=== PATIENT | female | born 1970 | race Caucasian/White ===

== ENCOUNTER 2024-03-28 12:05 | Emergency (ER) | payer SELFPAY ==
[2024-03-28 12:12] VITALS: BP 117/70; PULSE 102; RESP 20; TEMP 36.6; O2SAT 99
--- NOTE | 2024-03-28 12:58 | ED.URI ---
HPI - URI/Sore Throat General Chief Complaint: Upper Respiratory Infection Stated Complaint: headcold/cough/sinus pressure/ear Time Seen by Provider: 03/28/24 12:30 Source: patient, RN notes reviewed and old records reviewed Mode of arrival: ambulatory Limitations: no limitations History of Present Illness HPI Narrative: 53 year old female who presents to [facility] care with complaints of head cold, cough, sinus pressure, and right ear pain for about a week. Patient reports that she just traveled from [place] last Saturday where she just got .Patient has MS and also Myasthenia gravis and takes infusions for treatment of these disease processes. Patient reports that she has been taking Ibuprofen for her symptoms and did do home COVID tests which have been negative MD elicited complaint: cough, rhinorrhea, nasal congestion, sinus pain and other (EAR PAIN) Pertinent past history: immunosuppression and other (recent travel) Onset (ago): week(s) (1) Pain scale (0-10): 7 Able to tolerate fluids by mouth: Yes Treatments prior to arrival: ibuprofen Related Data Home Medications Medication Instructions Recorded Confirmed atorvastatin 20 mg tablet 20 mg PO DAILY 03/28/24 03/28/24 bupropion HCl 150 mg tablet,12 hr 300 mg PO DAILY 03/28/24 03/28/24 sustained-release dapagliflozin propanediol 10 mg 10 mg PO DAILY 03/28/24 03/28/24 tablet (Farxiga) escitalopram oxalate 10 mg tablet 10 mg PO DAILY 03/28/24 03/28/24 insulin glargine 100 unit/mL 60 unit subcut DAILY 03/28/24 03/28/24 subcutaneous solution (Lantus U-100 Insulin) irbesartan 75 mg tablet 75 mg PO DAILY 03/28/24 03/28/24 metformin 1,000 mg tablet 1,000 mg PO DAILY 03/28/24 03/28/24 spironolactone 50 mg tablet 50 mg PO BID 03/28/24 03/28/24 Allergies Allergy/AdvReac Type Severity Reaction Status Date / Time No Known Allergies Allergy Verified 03/28/24 12:17 Review of Systems Review of Systems: CONSTITUTIONAL: Reports malaise, no chills, sweats, or fever. EYES: Denies visual changes, redness, or discharge. ENT: Reports rhinorrhea, congestion, sinus pain, right otalgia and no sore throat. CARDIOVASCULAR: Denies chest pain, palpitations, or edema. RESPIRATORY: Reports dry cough.? Denies dyspnea. GASTROINTESTINAL: Denies abdominal pain, nausea, vomiting, diarrhea SKIN: Denies rash or itching. MUSCULOSKELETAL: Denies myalgia. NEUROLOGIC: Reports headache. All systems reviewed & are unremarkable except as noted in HPI and below PMFSH Past Medical History Medical History (Updated 03/30/24 @ 11:08 by Carleen See NP) Anxiety and depression Diabetes Hyperlipidemia Hypertension Multiple sclerosis Myasthenia gravis without (acute) exacerbation Surgical History Surgical History (Updated 03/28/24 @ 13:34 by Carleen See NP) H/O: hysterectomy History of thymectomy Social History Social History (Updated 03/28/24 @ 13:27 by Carleen See NP) Smoking status: Former smoker Tobacco type: cigarettes Alcohol intake: current Alcohol use details: social Substance use type: does not use Living arrangements: with family Gender identity (if verbalized by the patient): Female Comments At time of signature, agree with nursing past medical, surgical, social and family history. There is no relevant family history pertinent to the presenting complaint Exam Narrative: GENERAL: Well-appearing, well-nourished, and in no acute distress. HEAD: Normocephalic EYES: PERRLA, conjunctivae clear ENT: Nares clear, turbinates edematous and erythematous, clear discharge sinus pressure and some headache pain, Mucous membranes moist.RIGHT TM RED, Left TM pearly oconnor with dull light reflex; no tragal tenderness. Oropharynx erythematous without lesions. Tonsils not present and throat without exudate, no drooling, no hoarseness, no trismus, uvula midline.post nasal drainage NECK: Supple. No lymphadenopathy CHEST: Clear to auscultation, breath sounds equal. No wheezing, rhonchi, rales, or stridor. No respiratory distress, speaks in full sentences.COUGH SAO2 99% ON ROOM AIR HEART: Regular rate and rhythm. No murmur heard. SKIN: Warm, dry, no rash. NEURO: Alert and oriented x3. PSYCH: Normal mood and affect Course Course Emergency Course: Patient is aware of diagnosis, understands and agrees to treatment plan.? Anticipatory guidance given.? Patient agrees to follow-up as directed and is aware of reasons to seek care at the emergency department. Portions of this record may have been created with voice recognition software Level of Care: Express Care Visit Vital Signs Vital signs: Vital Signs Temperature 36.6 C 03/28/24 12:12 Pulse Rate 102 H 03/28/24 12:12 Respiratory Rate 20 03/28/24 12:12 Blood Pressure 117/70 03/28/24 12:12 Pulse Oximetry 99 03/28/24 12:12 Oxygen Delivery Room Air 03/28/24 12:12 Temperature 36.6 C 03/28/24 12:12 Pulse Rate 102 H 03/28/24 12:12 Respiratory Rate 20 03/28/24 12:12 Blood Pressure 117/70 03/28/24 12:12 Pulse Oximetry 99 03/28/24 12:12 Oxygen Delivery Room Air 03/28/24 12:12 Reviewed MDM - URI/Sore Throat MDM Narrative Medical decision making narrative: Differential diagnosis considered: Monique virus, strep pharyngitis, allergic rhinitis, upper respiratory tract infection, sinusitis, rhinosinusitis, nasopharyngitis. viral pharyngitis, otitis media, otitis externa, pneumonia, bronchitis, viral cough syndrome, viral syndrome, and influenza.? Exam findings show no acute concerns or changes; patient is non-toxic appearing and is in no distress.? Patient is appropriate for outpatient treatment and follow-up. Differential Diagnosis Differential diagnosis: Likely upper respiratory infection, otitis media, viral infection, pharyngitis and other (COUGH) Medical Records Attestation: I reviewed the patient's medical records. Lab Data Attestation: I reviewed the patient's lab results. Critical Care Time Critical Care Time Critical Care Time: No Discharge Plan Discharge Clinical Impression: Upper respiratory infection with cough and congestion Otitis media Qualifiers: Otitis media type: serous Chronicity: acute Laterality: right Recurrence: non-recurrent Qualified Code(s): H65.01 - Acute serous otitis media, right ear Patient Disposition: Home, Self-Care Condition: Stable Instructions: Antibiotic Form, Ear Infection (GEN) Additional Instructions: INCREASE FLUIDS ESPECIALLY JUICES AND WATER [id number] COUGH AND COLD MEDICINE OF YOUR CHOICE FOR YOUR SYMPTOMS ZYRTEC CLARITIN OR JASPREET DAILY INCLUDE CORICIDIN BRAND DECONGESTANT CONTINUE YOUR INHALER/NEBULIZER DIRECTED STEROIDS DIRECTED--TAKE WITH FOOD MONITOR GLUCOSE LEVELS WHILE TAKING STEROIDS ADHERE TO DIETARY RESTRICTION HEAT TO THE FACE 20-30 MINUTES 4-6 TIMES A DAY FOR PAIN SALT WATER GARGLES, THROAT LOZENGES OR THROAT SPRAYS DESIRED ANTIBIOTIC DIRECTED--FINISHED THE MEDICATION IF YOUR SYMPTOMS PERSIST, CHANGE OR WORSEN SIGNIFICANTLY BEFORE YOU CAN CONTACT YOUR PERSONAL PHYSICIAN THEN PLEASE, WITHOUT DELAY, GO TO THE EMERGENCY DEPARTMENT FOR FURTHER EVALUATION. FOLLOW-UP WITH PCP IN 7-10 DAYS OR SOONER IF NEEDED Prescriptions: New amoxicillin-pot clavulanate 875-125 mg tablet 1 tablet PO Q12H Qty: 20 0RF Rx Instructions: TAKE ALL MEDICATION MAY INCLUDE PROBIOTIC WHILE TAKING MEDICATION prednisone 20 mg tablet 20 mg PO BID Qty: 10 0RF No Action bupropion HCl 150 mg tablet sustained-release 12 hr 300 mg PO DAILY atorvastatin 20 mg tablet 20 mg PO DAILY insulin glargine [Lantus U-100 Insulin] 100 unit/mL solution 60 unit SUBCUT DAILY metformin 1,000 mg tablet 1,000 mg PO DAILY irbesartan 75 mg tablet 75 mg PO DAILY spironolactone 50 mg tablet 50 mg PO BID escitalopram oxalate 10 mg tablet 10 mg PO DAILY dapagliflozin propanediol [Farxiga] 10 mg tablet 10 mg PO DAILY Follow-up/Referrals: Boone,Hugo Chino DO [Primary Care Provider] - Time of Disposition: 13:13 Quality Christina Coma Scale Eyes: Open Verbal: Oriented and Alert Motor: Follows Commands Christina Coma Total Score: 15
== END 2024-03-28 13:22 | disposition home or self-care (01) ==
PROVIDERS: Emergency Provider Registered Nurse; PCP Family Medicine
DX: J06.9 Acute upper respiratory infection, unspecified (principal); R05.9 Cough, unspecified; H65.01 Acute serous otitis media, right ear; E11.9 Type 2 diabetes mellitus without complications; Z79.4 Long term (current) use of insulin; Z79.84 Long term (current) use of oral hypoglycemic drugs; E78.5 Hyperlipidemia, unspecified; I10 Essential (primary) hypertension; G35 Multiple sclerosis; G70.00 Myasthenia gravis without (acute) exacerbation; F41.9 Anxiety disorder, unspecified; F32.A Depression, unspecified; Z87.891 Personal history of nicotine dependence
CPT/HCPCS: 99203; G0463